=== PATIENT | female | born 1965 ===

== ENCOUNTER 2021-08-13 08:30 | Outpatient (CLI) | payer OTHER | END 2021-08-13 09:15 | disposition home or self-care (01) | LOC: RAD 08:30 | PROVIDERS: ATTEND General Practice | DX: S99.922A Unspecified injury of left foot, initial encounter (principal) ==

== ENCOUNTER 2021-12-09 08:00 | Outpatient (CLI) | payer OTHER | END 2021-12-09 08:05 | disposition home or self-care (01) | LOC: PPH VACUNA 08:00 | PROVIDERS: ATTEND Emergency Medicine Pediatric Emergency Medicine | DX: Z23 Encounter for immunization (principal) ==

== ENCOUNTER 2021-12-21 08:14 | Emergency (ER) | payer OTHER ==
[~2021-12-21] VITALS: Ht 172.7 cm; Wt 86.2 kg
[2021-12-21] MEDS ORDERED: MICARDIS40 MG PO (08:49)
[2021-12-21] MEDS ORDERED: TOPROL XL50 M1 PO (08:49)
[2021-12-21] MEDS ORDERED: KETO10TA2 PO (09:37)
[2021-12-21] MEDS ORDERED: NORFLEX100MG PO (09:37)
[2021-12-21] MEDS ORDERED: CYCLOBENZAPRINE10 MG PO (09:37)
== END 2021-12-21 10:16 | disposition home or self-care (01) ==
LOC: ER 08:14
DX: M62.830 Muscle spasm of back (principal); I10 Essential (primary) hypertension; Z91.013 Allergy to seafood